=== PATIENT | male | born 1985 | race Caucasian/White ===

== ENCOUNTER 2021-02-03 23:57 | Emergency (ER) | payer BC, OTHER ==
[2021-02-04 01:48] LABS: HEMOGLOBIN 14.6 gm/dl (14.0-17.5); RED BLOOD COUNT 4.7 M/UL (4.20-5.50); WHITE BLOOD COUNT 7.9 K/UL (4.5-11.0)
[2021-02-04 02:11] LABS: BUN/CREATININE RATIO 13 (0-10)
== END 2021-02-04 04:40 | disposition home or self-care (01) ==
LOC: ER1 23:57
PROVIDERS: Physician Assistant; Urology
DX: R55 Syncope and collapse (principal); I10 Essential (primary) hypertension; F17.210 Nicotine dependence, cigarettes, uncomplicated
CPT/HCPCS: 71045; 80053; 80307; 81001; 82550; 82553; 83735; 83874; 83880; 84439; 84443; 84484; 85025; 93005; 99284